=== PATIENT | female | born 1970 | race Caucasian/White ===

== ENCOUNTER 2017-07-20 13:23 | Emergency (ER) | payer OTHER ==
--- NOTE | 2017-07-20 14:47 | C.PDOC ---
History Of Present Illness 46 y/o female, with PMHx of HTN, presents to ED for evaluation of headache, subjective fever, sore throat, numbness and tingling to bilateral arms. Pt states that she was at the [facility] with her children and the doctor noticed that she did not feel well. He advised she be evaluated in the clinic. She was referred here by the doctor in the clinic this morning. She had blood pressure taken which showed elevated BP. Pt states she has not taken her BP meds for the last 3 months since moving here from [place]. Otherwise, denies chest pain, shortness of breath, or abdominal pain. Time Seen by Provider: 07/20/17 14:13 Chief Complaint (Nursing): High Blood Pressure History Per: Patient History/Exam Limitations: no limitations Onset/Duration Of Symptoms: Hrs Current Symptoms Are (Timing): Still Present Associated Symptoms: Headache. denies: Chest Pain, Dyspnea, Dizziness, Blurred Vision Recent travel outside of the [place]: No Additional History Per: Patient Past Medical History Reviewed: Historical Data, Nursing Documentation, Vital Signs Vital Signs: Last Vital Signs Temp 98.9 F 07/20/17 13:49 Pulse 78 07/20/17 14:12 Resp 20 07/20/17 13:49 BP 158/81 H 07/20/17 14:12 Pulse Ox 100 07/20/17 15:21 - Medical History PMH: HTN Family History: States: Unknown Family Hx - Social History Hx Alcohol Use: No Hx Substance Use: No - Immunization History Hx Tetanus Toxoid Vaccination: Yes Hx Influenza Vaccination: Yes Hx Pneumococcal Vaccination: Yes Review Of Systems Except As Marked, All Systems Reviewed And Found Negative. Constitutional: Positive for: Fever ENT: Positive for: Throat Pain. Negative for: Ear Pain, Nose Discharge, Nose Congestion Cardiovascular: Negative for: Chest Pain, Palpitations Respiratory: Negative for: Cough, Shortness of Breath Gastrointestinal: Positive for: Vomiting. Negative for: Abdominal Pain, Diarrhea Musculoskeletal: Negative for: Neck Pain, Back Pain Skin: Negative for: Rash, Bruising Neurological: Positive for: Numbness (arms), Headache. Negative for: Dizziness Physical Exam - Physical Exam Appears: Non-toxic, No Acute Distress Skin: Normal Color, Warm, Dry Head: Atraumatic, Normacephalic Eye(s): bilateral: Normal Inspection, PERRL, EOMI Nose: Normal Oral Mucosa: Moist Neck: Normal ROM, Supple Lymphatic: No Adenopathy Chest: Symmetrical Cardiovascular: Rhythm Regular, No Murmur Respiratory: Normal Breath Sounds, No Rales, No Rhonchi, No Wheezing Gastrointestinal/Abdominal: Soft, No Tenderness Back: No CVA Tenderness Extremity: Normal ROM, No Pedal Edema Extremity: Bilateral: Atraumatic Neurological/Psych: Oriented x3, Normal Speech, Normal Cognition, Normal Cranial Nerves, Normal Motor, Normal Sensation, No Other (no focal deficits) ED Course And Treatment - Laboratory Results Result Diagrams: 07/20/17 15:00 07/20/17 15:00 Lab Interpretation: Abnormal (Low WBC 3.7 with elevated monos on diff.) O2 Sat by Pulse Oximetry: 100 Pulse Ox Interpretation: Normal Progress Note: Blood work, UA, EKG ordered and reviewed. Reevaluation Time: 16:01 Reassessment Condition: Improved (BP 156/85 Patient appears comfortable.) Disposition Counseled Patient/Family Regarding: Studies Performed, Diagnosis, Need For Followup, Rx Given - Disposition Referrals: [facility] [Outside] Disposition: HOME/ ROUTINE Disposition Time: 16:02 Condition: STABLE Prescriptions: Metoprolol Tartrate [Lopressor] 50 mg PO BID #60 tab Instructions: Hypertension (ED), Viral Syndrome (ED) Forms: [employer] (Scottish) Print Language: LUX[place]GISH - Clinical Impression Clinical Impression: Hypertension, Viral syndrome - Scribe Statement The provider has reviewed the documentation as recorded by the Scribe Erin Andrade All medical record entries made by the Scribe were at my direction and personally dictated by me. I have reviewed the chart and agree that the record accurately reflects my personal performance of the history, physical exam, medical decision making, and the department course for this patient. I have also personally directed, reviewed, and agree with the discharge instructions and disposition.
[2017-07-20 15:10] LABS: BASO % 0.5 % (0.0-2.0); EOS % 0.5 % (0.0-4.0); HEMATOCRIT 37.1 % (34.0-47.0); LYMPH # 0.7 K/uL (1.0-4.3); LYMPH % 18.5 % (20.0-40.0); MEAN CELL VOLUME 70.2 fL (81.0-99.0); MEAN CORPUSCULAR HEMOGLOBIN 22.6 pg (27.0-31.0); MEAN CORPUSCULAR HGB CONC 32.2 g/dL (33.0-37.0); MEAN PLATELET VOLUME 10.2 fL (7.2-11.7); MONO # 0.6 K/uL (0.0-0.8); MONO % 15.8 % (0.0-10.0); RED CELL DISTRIBUTION WIDTH 17.2 % (11.5-14.5); WHITE BLOOD COUNT 3.7 K/uL (4.8-10.8)
[2017-07-20 15:11] LABS: RBC URINE 2 /hpf (0-3); URINE BACTERIA RARE (<OCC); URINE BILIRUBIN NEGATIVE (NEGATIVE); URINE BLOOD NEGATIVE (NEGATIVE); URINE COLOR Yellow (YELLOW); URINE GLUCOSE (UA) NORMAL (Normal); URINE KETONE TRACE mg/dL (NEGATIVE); URINE LEUKOCYTE ESTERASE TRACE Leu/uL (Negative); URINE PROTEIN NEGATIVE (NEGATIVE); URINE UROBILINOGEN NORMAL mg/dL (0.2-1.0); WBC URINE 5 /hpf (0-5)
[2017-07-20 15:27] LABS: CHLORIDE 99 mmol/L (98-107); POTASSIUM 3.9 mmol/L (3.6-5.2); SODIUM 142 mmol/L (132-148)
[2017-07-20 15:29] LABS: ALB/GLOB RATIO 1.5 (1.0-2.1); AST/SGOT 25 U/L (14-36); BILIRUBIN,TOTAL 0.7 mg/dL (0.2-1.3); CARBON DIOXIDE 25 mmol/L (22-30); GFR AFRICAN-AMERICAN > 60; TOTAL PROTEIN 7.7 g/dL (6.3-8.3)
[2017-07-20 15:30] LABS: ALKALINE PHOSPHATASE 73 U/L (38-126); ALT/SGPT 36 U/L (9-52); BLOOD UREA NITROGEN 12 mg/dL (7-17); CALCIUM 8.8 mg/dl (8.6-10.4); GLUCOSE,RANDOM 74 mg/dL (65-105)
[2017-07-20 16:14] VITALS: BP 128/85; PULSE 62; RESP 18; TEMP 98.6; O2SAT 99
--- NOTE | 2017-07-25 13:05 | CARD ---
APPROVED REPORT EKG Measurement Heart [id number] VA 130P-13 [id number] <Conclusion> Normal sinus rhythm Normal ECG
== END 2017-07-20 16:14 | disposition home or self-care (01) ==
LOC: C.ER 13:23
DX: I10 Essential (primary) hypertension (principal); B34.9 Viral infection, unspecified

== ENCOUNTER 2018-07-27 11:47 | Emergency (ER) | payer OTHER ==
[2018-07-27 14:18] LABS: BASO % 0.6 % (0.0-2.0); EOS # 0.1 K/uL (0.0-0.7); EOS % 1.4 % (0.0-4.0); HEMOGLOBIN 12.4 g/dL (11.0-16.0); LYMPH # 1.6 K/uL (1.0-4.3); LYMPH % 32.8 % (20.0-40.0); MEAN CELL VOLUME 72.4 fL (81.0-99.0); MEAN CORPUSCULAR HEMOGLOBIN 23.5 pg (27.0-31.0); MEAN CORPUSCULAR HGB CONC 32.5 g/dL (33.0-37.0); MEAN PLATELET VOLUME 9.1 fL (7.2-11.7); MONO # 0.4 K/uL (0.0-0.8); MONO % 8.8 % (0.0-10.0); NEUT # 2.8 K/uL (1.8-7.0); NEUT % 56.4 % (50.0-75.0); RBC 5.26 Mil/uL (3.80-5.20); RED CELL DISTRIBUTION WIDTH 19.3 % (11.5-14.5)
--- NOTE | 2018-07-27 14:41 | C.PDOC ---
History Of Present Illness 47 y/o female, w/PMhx of HTN, presents to the ER complaining of headache and tingling in left hand. Patient states that she was admitted for headache, dizziness, and numbness in left arm at [facility] from 06/24/18- 06/27/18. At the time, she had [address] and she was discharged. Patient states that she returned to work at [employer] today because she was not feeling well. Her boss was upset because she was supposed to be return on 07/20/18. After she had an argument with her boss, she had a headache and epistaxis. She notes that she has history of epistaxis since she was exposed to fumes at work a few months ago. Denies having fever, chills, CP, SOB, nausea, and vomiting. Time Seen by Provider: 07/27/18 12:46 Chief Complaint (Nursing): Dizziness/Lightheaded History Per: Patient History/Exam Limitations: no limitations Onset/Duration Of Symptoms: Days Current Symptoms Are (Timing): Still Present Severity: Moderate Past Medical History Reviewed: Historical Data, Nursing Documentation, Vital Signs Vital Signs: Last Vital Signs Temp 98.8 F 07/27/18 12:06 Pulse 81 07/27/18 12:06 Resp 19 07/27/18 12:06 BP 143/80 07/27/18 12:06 Pulse Ox 95 07/27/18 12:06 - Medical History PMH: HTN Other Surgeries: Hx of surgeries Family History: States: No Known Family Hx - Social History Hx Alcohol Use: No Hx Substance Use: No - Immunization History Hx Tetanus Toxoid Vaccination: Yes Hx Influenza Vaccination: No Hx Pneumococcal Vaccination: No Review Of Systems Except As Marked, All Systems Reviewed And Found Negative. Constitutional: Negative for: Fever, Chills Cardiovascular: Negative for: Chest Pain Respiratory: Negative for: Shortness of Breath Neurological: Positive for: Headache, Other (tingling of left hand) Physical Exam - Physical Exam Appears: Non-toxic, No Acute Distress Skin: Normal Color, Warm, Dry Head: Atraumatic, Normacephalic Eye(s): bilateral: Other (injected,watery) Nose: Normal Oral Mucosa: Moist Neck: Supple Chest: Symmetrical Cardiovascular: Rhythm Regular Respiratory: Normal Breath Sounds, No Rales, No Rhonchi, No Wheezing Gastrointestinal/Abdominal: Soft, No Tenderness, No Guarding, No Rebound, Other (obese) Neurological/Psych: Oriented x3, Normal Speech ED Course And Treatment - Laboratory Results Result Diagrams: 07/27/18 14:12 07/27/18 14:12 ECG: Interpreted By Me, Viewed By Me ECG Rhythm: Sinus Rhythm Interpretation Of ECG: NSR with no ST elevations or depressions Rate From EC O2 Sat by Pulse Oximetry: 95 (RA) Pulse Ox Interpretation: Normal - CT Scan/US CT-Head Other Rad Studies (CT/US): Read By Radiologist, Radiology Report Reviewed CT/US Interpretation: Date of service: 2018-07-27 14:50:21. PROCEDURE: CT HEAD WITHOUT CONTRAST. HISTORY: Headache. COMPARISON: Noncontrast head CT performed 06/25/18. TECHNIQUE: Axial computed tomography images were obtained through the head/brain without intravenous contrast. Radiation dose: Total exam DLP = 1029.99 mGy-cm. This CT exam was performed using one or more of the following dose reduction techniques: Automated exposure control, adjustment of the mA and/or kV according to patient size, and/or use of iterative reconstruction technique. FINDINGS: HEMORRHAGE: No intracranial hemorrhage. BRAIN: No mass effect or edema. No atrophy or chronic microvascular ischemic changes.Please note that MRI with diffusion imaging is more sensitive in the detection of acute ischemic event. VENTRICLES: No hydrocephalus. CALVARIUM: Unremarkable. PARANASAL SINUSES: Mucosal thickening of the imaged right maxillary sinus. Remainder of the visualized paranasal sinuses appear unremarkable. MASTOID AIR CELLS: Unremarkable as visualized. No inflammatory changes. OTHER FINDINGS: None. IMPRESSION: No acute intracranial pathology identified. Mucosal thickening of the partially imaged right maxillary sinus; correlate clinically for sinusitis. Medical Decision Making Medical Decision Making: Plan: --Labs --EKG --CT-Head --Reglan IV --Morphine IV Disposition Counseled Patient/Family Regarding: Studies Performed, Diagnosis, Need For Followup - Disposition Referrals: [facility] [Outside] Disposition Time: 16:23 Prescriptions: Aspirin/Acetaminophen/Caffeine [Excedrin Extra Strength Caplet] 2 each PO BID PRN #20 tablet PRN Reason: Pain, Moderate (4-7) Instructions: Headache, Adult Forms: [facility] (Welsh), Gen Discharge Inst Welsh - POA Present On Arrival: None - Clinical Impression Clinical Impression: Hypertension, Headache - Scribe Statement The provider has reviewed the documentation as recorded by the Kerryibe Ramin Bolaños Provider Attestation: All medical record entries made by the Kerryibe were at my direction and personally dictated by me. I have reviewed the chart and agree that the record accurately reflects my personal performance of the history, physical exam, medical decision making, and the department course for this patient. I have also personally directed, reviewed, and agree with the discharge instructions and disposition.
[2018-07-27 14:52] LABS: ALB/GLOB RATIO 1.5 (1.0-2.1); ALBUMIN 4.6 g/dL (3.5-5.0); ALT/SGPT 39 U/L (9-52); AST/SGOT 29 U/L (14-36); BLOOD UREA NITROGEN 14 mg/dL (7-17); CALCIUM 9.8 mg/dl (8.6-10.4); GFR NON-AFRICAN AMERICAN > 60
--- NOTE | 2018-07-27 15:07 | CT ---
Date of service: 2018-07-27 14:50:21 PROCEDURE: CT HEAD WITHOUT CONTRAST. HISTORY: Headache COMPARISON: Noncontrast head CT performed 06/25/18 TECHNIQUE: Axial computed tomography images were obtained through the head/brain without intravenous contrast. Radiation dose: Total exam DLP = 1029.99 mGy-cm. This CT exam was performed using one or more of the following dose reduction techniques: Automated exposure control, adjustment of the mA and/or kV according to patient size, and/or use of iterative reconstruction technique. FINDINGS: HEMORRHAGE: No intracranial hemorrhage. BRAIN: No mass effect or edema. No atrophy or chronic microvascular ischemic changes.Please note that MRI with diffusion imaging is more sensitive in the detection of acute ischemic event. VENTRICLES: No hydrocephalus. CALVARIUM: Unremarkable. PARANASAL SINUSES: Mucosal thickening of the imaged right maxillary sinus. Remainder of the visualized paranasal sinuses appear unremarkable. MASTOID AIR CELLS: Unremarkable as visualized. No inflammatory changes. OTHER FINDINGS: None. IMPRESSION: No acute intracranial pathology identified. Mucosal thickening of the partially imaged right maxillary sinus; correlate clinically for sinusitis.
[2018-07-27 16:51] VITALS: BP 114/74; PULSE 63; RESP 18; TEMP 98.2; O2SAT 100
--- NOTE | 2018-07-31 11:15 | CARD ---
APPROVED REPORT Date of service: 07/27/2018 EKG Measurement Heart [id number] RI 126P-13 [id number] <Conclusion> Normal sinus rhythm Normal ECG
== END 2018-07-27 16:51 | disposition home or self-care (01) ==
LOC: C.ER 11:47
DX: I10 Essential (primary) hypertension (principal); R51 Headache
CPT/HCPCS: 70450; 80053; 85025; 93005; 96374; 96375; 99285; J2270; J2765

== ENCOUNTER 2019-03-06 08:26 | Outpatient (CLI) | payer OTHER | END 2019-03-06 08:27 | disposition home or self-care (01) | LOC: C.LAB 08:26 | DX: I10 Essential (primary) hypertension (principal); Z12.11 Encounter for screening for malignant neoplasm of colon ==